=== PATIENT | female | born 1940 | race Hispanic/Latino ===

== ENCOUNTER 2018-08-26 00:46 | Emergency (ER) | payer MEDICARE, OTHER ==
[2018-08-26 01:00] VITALS: BMI 33.9
[2018-08-26] MEDS ORDERED: Labetalol 5mg/ml (4ml) IV STA (01:22)
--- NOTE | 2018-08-26 01:27 | ED PDOC ---
Arrival/HPI - General Chief Complaint: High Blood Pressure Historian: Patient - History of Present Illness Narrative History of Present Illness (Text): 08/26/18 01:21 78 year old female, whose past medical history includes CAD, a fib on Metoprolol, hypertension, COPD, hyperlipidemia, obstructive sleep apnea, gastric bypass, and cholecystectomy, who presents to the ED complaining of elevated blood pressure. Patient states she has been experiencing fluctuating blood pressure for the past couple of days, highest reading was 220/130 this evening. Patient notes she has been experiencing associated dizziness but denies any dizziness currently. Patient notes she has been taking her medication as directed and denies any diet changes. Patient also notes she has recently had a "nerve block" on 08/22/18. Patient denies any nausea, vomiting, blurry vision, loss of consciousness, headache, chest pain, shortness of breath, leg swelling, changes in medication, or any other complaints. PMD: Dr. Yarbrough Video Arcade Manager: Dr. Girard Time/Duration: < week Symptom Onset: Gradual Symptom Course: Unchanged Activities at Onset: Light Context: Home Past Medical History - Provider Review Nursing Documentation Reviewed: Yes - Infectious Disease Hx of Infectious Diseases: None - Tetanus Immunization Tetanus Immunization: Unknown - Cardiac Hx Cardiac Disorders: Yes Hx Hypertension: Yes - Pulmonary Hx Respiratory Disorders: Yes Hx Chronic Obstructive Pulmonary Disease (COPD): Yes - Neurological Hx Neurological Disorder: No Hx Paralysis: No - HEENT Hx HEENT Disorder: Yes Hx Cataracts: Yes (BILATERAL SX) - Renal Hx Renal Disorder: No - Endocrine/Metabolic Hx Endocrine Disorders: No - Hematological/Oncological Hx Blood Disorders: Yes Hx Blood Transfusions: Yes (2000) Hx Blood Transfusion Reaction: No - Integumentary Hx Dermatological Disorder: Yes (ROSACEA) - Musculoskeletal/Rheumatological Hx Musculoskeletal Disorders: Yes Hx Back Pain: Yes (Chronic) - Gastrointestinal Hx Gastrointestinal Disorders: Yes Hx Gall Bladder Disease: Yes (CHOLECYSTECTOMY) Hx Gastroesophageal Reflux: Yes Other/Comment: HX. STONES IN BILE DUCT AFTER CHOLECYSTECTOMY - Genitourinary/Gynecological Hx Genitourinary Disorders: Yes Hx Incontinence: Yes (STRESS) - Psychiatric Hx Psychophysiologic Disorder: No Hx Emotional Abuse: No Hx Physical Abuse: No Hx Substance Use: No - Surgical History Hx Cataract Extraction: Yes (bilateral cataract repair) Hx Cholecystectomy: Yes Hx Coronary Artery Bypass Graft: Yes Hx Gastric Bypass Surgery: Yes Hx Orthopedic Surgery: Yes Other/Comment: Nerve block 08/22/18. Right hip replacement. Left knee orthoscopic sx. Left knee replacement. Right knee replacement - Anesthesia Hx Anesthesia: Yes Hx Anesthesia Reactions: No Hx Malignant Hyperthermia: No - Suicidal Assessment Feels Threatened In Home Enviroment: No Family/Social History - Physician Review Nursing Documentation Reviewed: Yes Family/Social History: Unknown Family HX Smoking Status: Former Smoker Hx Alcohol Use: No Hx Substance Use: No Allergies/Home Meds Allergies/Adverse Reactions: Allergies No Known Allergies Allergy (Verified 04/25/16 10:41) Home Medications: Home Meds Medication Instructions Recorded Confirmed Calcium Carbonate/Vitamin D3 1 tab PO DAILY 10/15/17 10/19/17 [Calcium 600 + Vit D Tablet] Cholecalciferol (Vitamin D3) 2,000 units PO DAILY 10/15/17 10/19/17 [Vitamin D3] Cyanocobalamin [Vitamin B12] 500 mcg PO DAILY 10/15/17 10/19/17 Docusate Sodium [Colace] 100 mg PO DAILY 10/15/17 10/19/17 Esomeprazole Magnesium [Nexium 20 mg PO DAILY 10/15/17 10/19/17 24Hr] Ezetimibe [Zetia] 10 mg PO DAILY 10/15/17 10/19/17 Furosemide [Lasix] 20 mg PO DAILY PRN 10/15/17 10/15/17 Labetalol [Trandate] 50 mg PO DAILY 10/15/17 10/19/17 Levocetirizine Dihydrochloride 5 mg PO DAILY 10/15/17 10/19/17 [Xyzal] Metoprolol Succinate 50 mg PO DAILY 10/15/17 10/19/17 Multivit-Min/FA/Lycopen/Lutein 1 tab PO DAILY 10/15/17 10/19/17 [Centrum Silver Tablet] Oxycodone HCl/Acetaminophen 1 tab PO DAILY PRN 10/15/17 10/19/17 [Oxycodone-Acetaminophen 5-325] Potassium Chloride [Klor-Con 10] 10 meq PO DAILY 10/15/17 10/19/17 Simvastatin [Zocor] 20 mg PO DAILY 10/15/17 10/19/17 Solifenacin Succinate [Vesicare] 10 mg PO DAILY 10/15/17 10/19/17 Valsartan [Diovan] 40 mg PO DAILY 10/15/17 10/19/17 Valsartan [Diovan] 160 mg PO DAILY 10/15/17 10/19/17 Zolpidem [Ambien] 10 mg PO HS PRN 10/15/17 10/19/17 tiZANidine [Zanaflex] 4 mg PO DAILY 10/15/17 10/19/17 traMADol [Ultram] 50 mg PO BID 10/15/17 10/19/17 Review of Systems - Physician Review All systems were reviewed & negative as marked: Yes - Review of Systems Constitutional: Normal. absent: Fevers Eyes: Normal ENT: Normal Respiratory: Normal. absent: SOB, Cough Cardiovascular: Other (+high blood pressure) Gastrointestinal: Normal. absent: Abdominal Pain, Diarrhea, Nausea, Vomiting Genitourinary Female: Normal. absent: Dysuria, Hematuria, Urine Output Changes Musculoskeletal: Normal. absent: Back Pain, Neck Pain Skin: Normal. absent: Rash Neurological: Headache, Dizziness Endocrine: Normal Hemo/Lymphatic: Normal Psychiatric: Normal Physical Exam Vital Signs Reviewed: Yes Temperature: Afebrile Blood Pressure: Hypertensive Pulse: Regular Respiratory Rate: Normal Appearance: Positive for: Well-Appearing, Non-Toxic, Comfortable Pain Distress: None Mental Status: Positive for: Alert and Oriented X 3 - Systems Exam Head: Present: Atraumatic, Normocephalic Pupils: Present: PERRL Extroacular Muscles: Present: EOMI Conjunctiva: Present: Normal Mouth: Present: Moist Mucous Membranes Neck: Present: Normal Range of Motion. No: Meningeal Signs, MIDLINE TENDERNESS, Paraspinal Tenderness Respiratory/Chest: Present: Clear to Auscultation, Good Air Exchange. No: Respiratory Distress, Accessory Muscle Use Cardiovascular: Present: Normal S1, S2, Irregular Rhythm (Irregularly, regular rhythm). No: Murmurs Abdomen: No: Tenderness, Distention, Peritoneal Signs Back: Present: Normal Inspection Upper Extremity: Present: Normal Inspection. No: Cyanosis, Edema Lower Extremity: Present: Normal Inspection. No: Edema Neurological: Present: GCS=15, CN II-XII Intact, Speech Normal, Motor Func Grossly Intact, Normal Sensory Function, Normal Cerebellar Funct Skin: Present: Warm, Dry, Normal Color. No: Rashes Psychiatric: Present: Alert, Oriented x 3, Normal Insight, Normal Concentration Medical Decision Making ED Course and Treatment: 08/26/18 01:22 Impression: 78 year old female complaining of fluctuating/elevated blood pressure and dizzin ess. Differential Diagnosis included but are not limited to: --hypertensive urgency/hypertensive emergency --vertigo Plan: -- EKG -- Chest X-ray -- Labs -- Urinalysis -- Reglan -- Labetalol --Lasix -- Reassess and disposition Prior Visits: Notes and results from previous visits were reviewed. Progress Notes: 08/26/18 02:50 Labs reviewed with elevated BNP of 1600 noted. Lasix ordered. Blood pressure noted to be 144/64 after antihypertensive administration. Urinalysis pending. 08/26/18 03:16 UA reveals esterases within the urine. Keflex ordered. Patient updated on UA results. She is advised to follow up with her PCP. Opportunity for questions given and answered. Scripts provided. She is stable for discharge. - Lab Interpretations Lab Results: 08/26/18 01:33 08/26/18 01:33 Lab Results 08/26/18 01:33: PT 13.9 H, INR 1.25, APTT 37.1 08/26/18 01:33: Sodium 134, Potassium 3.7, Chloride 97 L, Carbon Dioxide 31, Anion Gap 10, BUN 23 H, Creatinine 0.8, Est GFR ( Amer) > 60, Est GFR (Non-Af Amer) > 60, Random Glucose 121 H, Calcium 8.8, Magnesium 1.9, Total Bilirubin 0.1 L, AST 23, ALT 21, Alkaline Phosphatase 77, Troponin I < 0.01 D, NT-Pro-B Natriuret Pep 1670 H, Total Protein 6.5, Albumin 3.8, Globulin 2.6, Albumin/Globulin Ratio 1.5 08/26/18 01:33: WBC 5.1, RBC 4.31, Hgb 9.7 L, Hct 32.2 L, MCV 74.7 L, MCH 22.5 L , MCHC 30.1 L, RDW 15.0 H, Plt Count 214, MPV 9.9, Neut % (Auto) 59.2, Lymph % (Auto) 28.3, Leon % (Auto) 9.9 H, Eos % (Auto) 2.2, Baso % (Auto) 0.4, Lymph # (Auto) 1.4, Leon # (Auto) 0.5, Eos # (Auto) 0.1, Baso # (Auto) 0.02, Absolute Neuts (auto) 2.99 I have reviewed the lab results: Yes - RAD Interpretation Narrative RAD Interpretations (Text): 08/26/18 01:52 Chest X-ray reviewed, shows cardiomegaly present, no consolidation, no infiltrates. Radiology Orders: 08/26/18 00:57 CHEST PORTABLE [RAD] Stat Flooring Mechanic: ED Physician - EKG Interpretation EKG Interpretation (Text): Irregularly irregular rhythm at [address] abnormalities. No QT interval prolongation. Interpreted by ED Physician: Yes Type: 12 lead EKG - Scribe Statement The provider has reviewed the documentation as recorded by the Scribe Dodie James Provider Scribe Attestation: All medical record entries made by the Scribe were at my direction and personally dictated by me. I have reviewed the chart and agree that the record accurately reflects my personal performance of the history, physical exam, medical decision making, and the department course for this patient. I have also personally directed, reviewed, and agree with the discharge instructions and disposition. Disposition/Present on Arrival - Present on Arrival Any Indicators Present on Arrival: Yes History of DVT/PE: No History of Uncontrolled Diabetes: No Urinary Catheter: Yes History of Decub. Ulcer: No History Surgical Site Infection Following: None - Disposition Have Diagnosis and Disposition been Completed?: Yes Diagnosis: UTI (urinary tract infection), Hypertensive urgency Disposition: HOME/ ROUTINE Disposition Time: 03:19 Patient Plan: Discharge Condition: IMPROVED Discharge Instructions (ExitCare): Urinary Tract Infections in Adults, High Blood Pressure (DC) Print Language: DANISH Additional Instructions: All medical record entries made by the Scribe were at my direction and personally dictated by me. I have reviewed the chart and agree that the record accurately reflects my personal performance of the history, physical exam, medical decision making, and the department course for this patient. I have also personally directed, reviewed, and agree with the discharge instructions and disposition. Please follow up with your PCP in 1 week Please take medications as prescribed. Prescriptions: Cephalexin [cephalexin] 500 mg PO Q12 5 Days #10 cap Referrals: Gina Yarbrough DO [Family Provider] - Follow up with primary Forms: [employer] (Japanese)
[2018-08-26 01:46] LABS: BASO # 0.02 K/mm3 (0.0-2.0); BASO % 0.4 % (0.0-3.0); EOS # 0.1 (0.0-0.7); EOS % 2.2 % (1.5-5.0); HEMOGLOBIN 9.7 g/dL (12.0-16.0); LYMPH # 1.4 (1.2-3.4); LYMPH % 28.3 % (22.0-35.0); MEAN CELL VOLUME 74.7 fl (80.0-105.0); MEAN CORPUSCULAR HEMOGLOBIN 22.5 pg (25.0-35.0); MEAN CORPUSCULAR HGB CONC 30.1 g/dl (31.0-37.0); MEAN PLATELET VOLUME 9.9 fl (7.0-11.0); MONO # 0.5 (0.1-0.6); MONO % 9.9 % (1.0-6.0); RBC 4.31 10^6/uL (3.5-6.1); WHITE BLOOD COUNT 5.1 10^3/uL (4.5-11.0)
[2018-08-26 01:48] LABS: INR 1.25; PARTIAL THROMBOPLASTIN TIME 37.1 Seconds (26.9-38.3); PROTHROMBIN TIME 13.9 SECONDS (9.4-12.5)
[2018-08-26 01:55] LABS: ALB/GLOB RATIO 1.5 (1.1-1.8); ALBUMIN 3.8 g/dL (3.0-4.8); ALT/SGPT 21 U/L (7-56); AST/SGOT 23 U/L (14-36); BLOOD UREA NITROGEN 23 mg/dL (7-21); CALCIUM 8.8 mg/dL (8.4-10.5); GFR NON-AFRICAN AMERICAN > 60
[2018-08-26 02:02] VITALS: RESP 18; O2SAT 98
[2018-08-26 02:06] LABS: B-TYPE NATRIURETIC PEPTIDE 1670 pg/mL (0-450); TROPONIN I < 0.01 ng/mL
[2018-08-26 02:55] LABS: URINE BILIRUBIN NEGATIVE (NEGATIVE); URINE BLOOD NEGATIVE (NEGATIVE); URINE GLUCOSE (UA) NEGATIVE (NEGATIVE); URINE LEUKOCYTE ESTERASE TRACE Leu/uL (NEGATIVE); URINE PROTEIN NEGATIVE mg/dL (<30 mg/dL); URINE UROBILINOGEN 0.2 E.U./dL (<1 E.U./dL)
[2018-08-26 03:12] LABS: URINE APPEARANCE SLIGHT-CLOUDY (CLEAR); URINE COLOR LIGHT YELLOW (YELLOW)
[2018-08-26 03:41] VITALS: BP 153/85; PULSE 73
[2018-08-26 03:46] LABS: URINE BACTERIA MOD /hpf
--- NOTE | 2018-08-26 10:26 | RAD ---
Date of service: 08/26/2018 HISTORY: htn COMPARISON: 02/24/2015 TECHNIQUE: 1 view obtained. FINDINGS: LUNGS: No active pulmonary disease. PLEURA: No significant pleural effusion identified, no pneumothorax apparent. CARDIOVASCULAR: No aortic atherosclerotic calcification present. Mild cardiomegaly no pulmonary vascular congestion. OSSEOUS STRUCTURES: Sternal wires VISUALIZED UPPER ABDOMEN: Normal. OTHER FINDINGS: None. IMPRESSION: No active disease.
--- NOTE | 2018-08-26 17:41 | CARD ---
APPROVED REPORT Date of service: 08/26/2018 EKG Measurement Heart [id number] <Conclusion> Atrial fibrillation Minimal voltage criteria for LVH, may be normal variant Abnormal ECG
== END 2018-08-26 03:41 | disposition home or self-care (01) ==
LOC: ED 00:46
DX: I10 Essential (primary) hypertension (principal); N39.0 Urinary tract infection, site not specified; I25.10 Atherosclerotic heart disease of native coronary artery without angina pectoris; I48.91 Unspecified atrial fibrillation; E78.5 Hyperlipidemia, unspecified; J44.9 Chronic obstructive pulmonary disease, unspecified; Z96.641 Presence of right artificial hip joint; Z87.891 Personal history of nicotine dependence
CPT/HCPCS: 71045; 80053; 81001; 83735; 83880; 84484; 85025; 85610; 85730; 87086; 93005; 96374; 96375; 99285; J1940; J2765